=== PATIENT | female | born 1955 | race Caucasian/White ===

== ENCOUNTER 2019-05-07 07:02 | Inpatient (IN) | payer SELFPAY ==
[~2019-05-07] VITALS: Ht 165.1 cm; Wt 48.1 kg
[~2019-05-07 07:02] MED LIST: CELEXA20 MG PO; GABAPENTIN100 MG PO; SEROQUEL100 MG PO; TRAZODONE HCL100 MG
--- OUTSIDE RECORDS SUMMARY | 2019-05-07 07:05 | XMS REPORT ---
Author Author [facility] Address Unknown Phone Unavailable Care Team Providers Care Oil Well Logger Name Role Phone Unavailable Unavailable Problems This patient has no known problems. Allergies, Adverse Reactions, Alerts This patient has no known allergies or adverse reactions. Medications This patient has no known medications. Encounters Start Date/Time End Date/Time Encounter Type Admission Type Attending [facility] Facility Care Department Encounter ID 2019-06-06 00:00:00 2019-06-06 00:00:[address] [facility] [id number] 2019-06-04 00:00:00 2019-06-04 00:00:[address] [facility] [id number] 2019-04-25 10:24:38 2019-04-25 10:24:[address] [facility] [id number] 2019-03-28 10:41:39 2019-03-28 10:41:[address] [facility] [id number] 2019-03-03 00:00:00 2019-03-03 00:00:[address] [facility] [id number] 2019-02-28 10:21:07 2019-02-28 10:21:[address] [facility] [id number] 2019-02-13 00:00:00 2019-02-13 00:00:[address] [facility] [id number] 2019-02-10 00:00:00 2019-02-10 00:00:[address] [facility] [id number] 2019-01-31 09:54:42 2019-01-31 09:54:[address] [facility] [id number] 2019-01-03 10:41:43 2019-01-03 10:41:[address] [facility] [id number] 2019-01-03 00:00:00 2019-01-03 00:00:[address] [facility] [id number] 2019-01-02 08:09:55 2019-01-02 08:09:[address] [facility] [id number] 2018-12-18 08:28:47 2018-12-18 08:28:[address] [facility] [id number] 2018-11-29 09:48:54 2018-11-29 09:48:[address] [facility] [id number] 2018-11-28 10:41:23 2018-11-28 10:41:[address] [facility] [id number] 2018-11-01 09:38:59 2018-11-01 09:38:[address] [facility] [id number] 2018-10-03 00:00:00 2018-10-03 00:00:[address] [facility] [id number] 2018-08-13 00:00:00 2018-08-13 00:00:[address] [facility] [id number] 2018-07-31 00:00:00 2018-07-31 00:00:[address] [facility] [id number] 2018-07-26 10:52:47 2018-07-26 10:52:[address] [facility] [id number] 2018-07-26 08:43:51 2018-07-26 08:43:[address] [facility] [id number] 2018-06-13 13:17:32 2018-06-13 13:17:[address] [facility] [id number]
--- OUTSIDE RECORDS SUMMARY | 2019-05-07 07:05 | XMS REPORT | Clinical Summary ---
Author Author [facility] Organization [facility] Address Unknown Phone Unavailable Care Team Providers Care Divider Operator Name Role Phone PCP Unavailable Allergies Comments Active Allergy Reactions Severity Noted Date Adhesive tape Adhesive Rash Low 12/24/2014 Medications End Date Status Medication Sig Dispensed Refills Start Date Active ASPIRIN 325 MG take 1 tablet 0 TABIndications: (325 mg) by Hypertension oral route once daily Active albuterol-ipratropium Administer 2 1 Inhaler 0 (COMBIVENT) 18-103 Puffs by 3 mcg/actuation inhalation 4 AeroIndications: times daily. Bronchitis due to tobacco use Active cromolyn (NASALCROM) 5.2 Administer 1 26 mL 0 mg/spray (4 %) nasal Valdez in each 3 sprayIndications: Acute nostril 4 upper respiratory times daily. infections of unspecified site Active Colloidal Oatmeal (AVEENO Apply to 1 Package 0 SOOTHING BATH) topical affected 3 packetIndications: area. Contact dermatitis and other eczema, due to unspecified cause Active tacrolimus (PROTOPIC) Apply to 100 g 0 0.03 % affected area 3 ointmentIndications: 2 times Discoid lupus daily. Active triamcinolone (KENALOG) Apply to 80 g 0 0.025 % topical affected area 3 creamIndications: Discoid 2 times lupus daily. Active propranolol (INDERAL) 10 Take 0.5 90 tablet 1 mg tabletIndications: tablets by 3 Bipolar depression mouth 3 times daily. Active fluocinonide (LIDEX) 0.05 Apply to 60 mL 1 % external affected area 4 solutionIndications: DLE 2 times (discoid lupus daily. erythematosus) Active fluocinonide (LIDEX) 0.05 Apply to 60 g 3 % ointmentIndications: affected area 4 DLE (discoid lupus 2 times erythematosus) daily. Active traMADol (ULTRAM) 50 mg Take 2 120 tablet 0 tabletIndications: tablets by 5 Proximal humerus fracture mouth every 6 hours as needed for Pain. Active acetaminophen-codeine Take 1 tablet 120 tablet 0 (TYLENOL/CODEINE #3) by mouth 5 300-30 mg per every 4 hours tabletIndications: as needed for Proximal humerus fracture Pain. Active traMADol (ULTRAM) 50 mg Take 1 tablet 60 tablet 0 tabletIndications: by mouth 5 Humerus fracture every 6 hours as needed for Pain. Active acetaminophen-codeine Take 2 60 tablet 0 (TYLENOL/CODEINE #3) tablets by 5 300-30 mg per mouth every 4 tabletIndications: hours as Humerus fracture needed for Pain. Active gabapentin (NEURONTIN) Take 1 90 capsule 3 300 mg capsule by 7 capsuleIndications: mouth 3 times Medication refill daily. Active mirtazapine (REMERON) 30 Take 1 and 45 tablet 3 mg tabletIndications: 1/2 tablets 8 Generalized anxiety by mouth at disorder bedtime nightly. Active venlafaxine (EFFEXOR XR) Take 3 90 capsule 3 75 mg extended release capsules by 8 capsuleIndications: mouth daily. Generalized anxiety disorder, Severe episode of recurrent major depressive disorder, without psychotic features Active albuterol (VENTOLIN Inhale 2 6.7 g 0 HFA,PROVENTIL HFA,PROAIR Puffs by 8 HFA) 90 mcg/actuation mouth 4 times inhalerIndications: Acute daily as bronchitis, unspecified needed for organism Wheezing or Shortness of Breath. Active eszopiclone (LUNESTA) 3 Take 1 tablet 30 tablet 1 mg tabletIndications: by mouth 8 Generalized anxiety nightly at disorder, Severe episode bedtime as of recurrent major needed depressive disorder, (insomnia). without psychotic features Active clonazePAM (KLONOPIN) 0.5 Take 1 tablet 20 tablet 0 mg tabletIndications: by mouth 8 Generalized anxiety daily as disorder needed for Anxiety. Active mirtazapine (REMERON) 15 Take 1 tablet 30 tablet 2 mg tabletIndications: by mouth at 8 Moderate episode of bedtime recurrent major nightly. depressive disorder, Generalized anxiety disorder, Severe episode of recurrent major depressive disorder, without psychotic features Active venlafaxine (EFFEXOR XR) Take 2 60 capsule 1 75 mg extended release capsules by 8 capsuleIndications: mouth daily. Moderate episode of recurrent major depressive disorder, Generalized anxiety disorder, Severe episode of recurrent major depressive disorder, without psychotic features Active acyclovir (ZOVIRAX) 5 % Apply to 30 g 5 ointmentIndications: affected area 9 Herpes labialis every 3 hours. Active fluocinonide (LIDEX) 0.05 Apply to 60 mL 5 % external affected area 9 solutionIndications: 2 times Discoid lupus daily. Active fluocinonide (LIDEX) 0.05 Apply to 60 g 5 % ointmentIndications: affected area 9 Discoid lupus daily. Active methotrexate (RHEUMATREX) Take 2 8 tablet 0 2.5 mg tabletIndications: tablets by 9 High risk medication use, mouth weekly. DLE (discoid lupus erythematosus) Active folic acid (FOLVITE) 1 mg Take 1 tablet 90 tablet 5 tabletIndications: by mouth 9 Discoid lupus, High risk daily. medication use Active hydroxychloroquine Take 1 tablet 180 tablet 0 (PLAQUENIL) 200 mg by mouth 2 9 tabletIndications: times daily. Long-term use of hydroxychloroquine, Discoid lupus 06/13/2018 Discontinued clonazePAM (KLONOPIN) 0.5 Take 1 tablet 30 tablet 2 mg tabletIndications: by mouth 8 Generalized anxiety daily as disorder needed for Anxiety. 06/13/2018 Discontinued eszopiclone (LUNESTA) 3 Take 1 tablet 30 tablet 2 mg tabletIndications: by mouth 8 Generalized anxiety nightly at disorder, Severe episode bedtime as of recurrent major needed depressive disorder, (insomnia). without psychotic features 11/29/2018 Discontinued fluocinonide (LIDEX) 0.05 Apply to 60 g 2 % ointmentIndications: affected area 8 Discoid lupus daily. 11/29/2018 Discontinued fluocinonide (LIDEX) 0.05 Apply to 60 mL 2 % external affected area 8 solutionIndications: 2 times Discoid lupus daily. 11/29/2018 Discontinued hydroxychloroquine Take 1 tablet 60 tablet 3 (PLAQUENIL) 200 mg by mouth 2 8 tabletIndications: times daily. Long-term use of hydroxychloroquine, Discoid lupus 11/29/2018 Discontinued methotrexate (RHEUMATREX) Take 2 8 tablet 0 2.5 mg tabletIndications: tablets by 9 High risk medication use, mouth weekly. DLE (discoid lupus erythematosus) 01/31/2019 Discontinued hydroxychloroquine Take 1 tablet 180 tablet 0 (PLAQUENIL) 200 mg by mouth 2 9 tabletIndications: times daily. Long-term use of hydroxychloroquine, Discoid lupus 11/29/2018 Discontinued methotrexate (RHEUMATREX) Take 2 8 tablet 0 2.5 mg tabletIndications: tablets by 9 High risk medication use, mouth weekly. DLE (discoid lupus erythematosus) Status Hospital, Clinic, or Ordered Dose Route Frequency Start End Date Other Facility Date Administered Medication Active saline flush 10 mL 10 mL IV PRN 04/25/20 19 9 Ended triamcinolone acetonide 2.5 mg OTHER ONCE 11/01/19 (KENALOG-10) injection 19 9 2.5 mg Ended saline flush 10 mL 10 mL IV ONCE 11/01/19 19 9 Ended saline flush 10 mL 10 mL IV PRN 03/28/20 19 9 Ended triamcinolone acetonide 10 mg OTHER ONCE 03/28/20 (KENALOG-40) injection 10 19 9 mg Ended triamcinolone acetonide 40 mg OTHER ONCE 04/25/20 (KENALOG-40) injection 40 19 9 mg Active Problems Problem Noted Date Fall with injury 03/27/2015 Humerus fracture 11/30/2014 Underweight 03/28/2013 Overview: patient needs access to high protein snacks such as milk, peanut butter, full fat ice cream and milk shakes. If available needs supplementation with Ensure. Discoid lupus 03/28/2013 Overview: discussed with patient the importance of using moisturizing lotion daily and more. As well as applying steriod cream once daily and protopic once daily. Anxiety disorder 02/19/2013 Homeless 02/12/2013 Tobacco abuse counseling 01/29/2013 Bipolar depression 12/30/2012 Hyperlipidemia 03/24/2010 Tobacco abuse 03/24/2010 Hypertension Low back pain Degenerative disc disease Encounters Care Team Description Date Type Specialty Usama Dove MD Discoid lupus (Primary Dx) 04/25/2019 Office Visit Dermatology 04/25/2019 Angus Castillo MD Discoid lupus erythematosus (Primary Dx); High risk medication use 03/28/2019 Office Visit Dermatology 03/28/2019 Angus Castillo MD Discoid lupus (Primary Dx); High risk medication use 02/28/2019 Office Visit Dermatology 02/28/2019 Angus Castillo MD Discoid lupus (Primary Dx); Long-term use of hydroxychloroquine 01/31/2019 Office Visit Dermatology 01/31/2019 Travel Elsie Lua Smoking Cessation Counseling 01/29/2019 Telephone Angus Box MD Discoid lupus (Primary Dx); Neoplasm of uncertain behavior of skin 01/03/2019 Office Visit Dermatology Cortney Santos, OD Long-term use of Plaquenil (Primary Dx); Age-related nuclear cataract, bilateral; Bilateral dry eyes; Refractive error 12/18/2018 Office Visit Ophthalmology 12/18/2018 Angus Castillo MD Discoid lupus (Primary Dx); High risk medication use; Herpes labialis; Long-term use of hydroxychloroquine; DLE (discoid lupus erythematosus) 11/29/2018 Office Visit Dermatology 11/28/2018 Travel Usama Dove MD DLE (discoid lupus erythematosus) (Primary Dx); High risk medication use 11/01/2018 Office Visit Dermatology 11/01/2018 Arron Vasques [facility] 08/01/2018 E-Consult Dermatology Usama Dove MD Discoid lupus erythematosus (Primary Dx) 07/31/2018 Orders Only Dermatology Usama Dove MD Discoid lupus 07/26/2018 Hospital Lab Encounter Usama Dove MD Discoid lupus (Primary Dx); Long-term use of hydroxychloroquine; Positive CONNOR (antinuclear antibody) 07/26/2018 Office Visit Dermatology Dewayne Garcia, Fellow() Moderate episode of recurrent major depressive disorder (Primary Dx); Generalized anxiety disorder; Severe episode of recurrent major depressive disorder, without psychotic features 06/13/2018 Office Visit Psychiatry after 05/06/2018 Immunizations Name Administration Dates Next Due PPV 23 Pneumococcal 01/20/2013 Polysaccaride Tdap Tetanus, diphtheria, 01/20/2013 (Deferred: Too early to give - Taken 5 acellular pertussis years ago per pt. ) Vaccine Family History Medical History Relation Name Comments Arthritis Father Heart Father Hypertension Father Hypertension Father Asthma Mother Diabetes Mother Hypertension Mother Pulmonary Mother COPD Hypothyroid Mother Arthritis Sister Relation Name Status Comments Brother Father Alive Father Father Father (Age 81) Maternal Grandfather Maternal Grandmother Mother Mother Mother Mother Mother Mother (Age 71) Paternal Grandfather Paternal Grandmother Sister Sister Alive Social History Date Tobacco Use Types Packs/Day Years Used Current Every Day Smoker Cigarettes 1 49 Smokeless Tobacco: Never Used Tobacco Cessation: Ready to Quit: No; Counseling Given: Yes Comments: patient declined Drinks/Week oz/Week Comments Alcohol Use never been a problem No Food Insecurity Answer Date Recorded Within the past 12 months, you worried that your Never true 11/29/2018 food would run out before you got money to buy more. Within the past 12 months, the food you bought Never true 11/29/2018 just didn't last and you didn't have money to get more. Sex Assigned at Date Recorded Not on file Industry Job Start Date Occupation Not on file Not on file Not on file Travel End Travel History Travel Start No recent travel history available. Last Filed Vital Signs Reading Time Taken Comments Vital Sign 114/83 06/13/2018 1:17 PM CDT Blood Pressure 91 06/13/2018 1:17 PM CDT Pulse 36.7 C (98 F) 06/13/2018 1:17 PM CDT Temperature 18 06/13/2018 1:17 PM CDT Respiratory Rate - - Oxygen Saturation - - Inhaled Oxygen Concentration 42.5 kg (93 lb 12.8 oz) 04/25/2019 10:26 AM CDT Weight 166.4 cm (5' 5.5") 04/25/2019 10:26 AM CDT Height 15.37 04/25/2019 10:26 AM CDT Body Mass Index Plan of Treatment Care Team Description Date Type Specialty 06/06/2019 Office Visit Dermatology Health Maintenance Due Date Last Done Comments Cervical Cancer Scrn (3 1976 Yrs) Breast Cancer Scrn 1995 (Yearly) IMM Influenza Seasonal 06/10/2019 Oct to November (>/=19 yrs) Colonoscopy 10yr 12/30/2023 12/29/2013 Implants Device Identifier Shelf Expiration Date Model / Serial / Lot Implanted Type Area Manufactur er / [id number] / 5 Hole Plate Left: Arm(s), Mckeon & Implanted: Qty: 1 on 12/24/2014 by [employer] Oswald Steward MD at [facility] c Description: 28 non-locking [id number] non-locking [id number] 22 non-locking [id number] 2.7 Short [id number] non locking [id number] locking [id number] x 2 in and out 32 locking [id number] 36 locking [id number] 34 locking [id number] 36 locki ng [id number] Arthroscopy Supplies Implanted: Qty: 1 on 12/24/2014 at [facility] Procedures Comments Procedure Name Priority Date/Time Associated Diagnosis [facility] SURGICAL PATHOLOGY Routine 01/03/2019 11:30 AM CDT COMPREHENSIVE METABOLIC Routine 01/02/2019 Discoid lupus PANEL 8:00 AM CDT High risk medication use CBC/DIFF Routine 01/02/2019 Discoid lupus 8:00 AM CDT High risk medication use CBC/DIFF Routine 11/28/2018 High risk medication use 10:33 AM CDT COMPREHENSIVE METABOLIC Routine 11/28/2018 High risk medication use PANEL 10:33 AM CDT COMPLEMENT C4 Routine 07/26/2018 Discoid lupus 11:05 AM PRINTING MACHINE OPERATOR COMPLEMENT C3 Routine 07/26/2018 Discoid lupus 11:05 AM PRINTING MACHINE OPERATOR SJOGREN'S AB Routine 07/26/2018 Discoid lupus 11:05 AM PRINTING MACHINE OPERATOR ANTI DSDNA BY CRITHIDIA Routine 07/26/2018 Discoid lupus 11:05 AM PRINTING MACHINE OPERATOR ANTIEXTRACTABLE NUCLEAR Routine 07/26/2018 Discoid lupus ANTIGENS 11:05 AM PRINTING MACHINE OPERATOR COMPREHENSIVE METABOLIC Routine 07/26/2018 Discoid lupus PANEL 11:05 AM PRINTING MACHINE OPERATOR CBC/DIFF Routine 07/26/2018 Discoid lupus 11:05 AM PRINTING MACHINE OPERATOR URINALYSIS Routine 07/26/2018 Discoid lupus 10:54 AM PRINTING MACHINE OPERATOR after 05/06/2018 Results * [facility] SURGICAL PATHOLOGY (01/03/2019 11:30 AM CDT) HX FINAL SKIN, LEFT CHEEK, PUNCH COPATH DIAGNOSIS BIOPSY:CONSISTENT WITH DISCOID LUPUS ERYTHEMATOSUS. Specimen Narrative Performed At [facility] ALISSA ALCOCER Date of 1955 Hospital Number [id number] Location Dermatology Clinic SURGICAL PATHOLOGY Collected:01/03/2019 11:30 Received: 01/06/2019 07:20 PATHOLOGIC DIAGNOSIS SKIN, LEFT CHEEK, PUNCH BIOPSY:CONSISTENT WITH DISCOID LUPUS ERYTHEMATOSUS. Pertinent Clinical Information Patient with long standing DLE, pruritic with lesion remission on left cheek, not responding to ILK; suspicious for SCC. Clinical Impression:SCC vs. DLE vs. other. Specimen:Left cheek. Gross Description This case consists of one part: Part A:Received in formalin labeled with the patient's name and medical record number and "LEFT CHEEK".It consists of a 0.4 x 0.4 cm shaggy, unoriented, andres, circular skin punch which is excised to a depth of 0.3 cm. The epidermis displays a 0.3 x 0.2 cm ill-defined, mar-white, granular macule which abuts the peripheral skin margin.The specimen is bisected to reveal the granular macule abuts the deep resection margin.Also in the container is a 0.3 x 0.3 x 0.1 cm aggregate of andres-white, granular, free floating soft tissue.The specimen is entirely submitted in cassette A1. Rohith Rehman/[id number] Ceramic Designer Microscopic Description There is spinous layer atrophy with many plugged follicles.Few necrotic keratinocytes are present.There is vacuolar alteration of the basal layer of the epidermis, and around the follicles.There is epidermal basement membrane thickening. Electronically Signed Out Art Estrada M.D./[id number] Staff Pathologist Performing Organization Address City/State/Zipcode Phone Number YUAN BOLDEN [place], [place] * COMPREHENSIVE METABOLIC PANEL(DBIL NOT INCLUDED) (01/02/2019 8:00 AM CDT) Only the most recent of 3 results within the time period is included. Albumin 3.9 3.7 - 5.3 g/dL [facility] 1 Calcium 9.0 8.6 - 10.3 mg/dL [facility] 1 CO2 28 21 - 31 mmol/L [facility] 1 Chloride 102 98 - 107 mmol/L [facility] 1 Creatinine 0.60 0.6 - 1.2 mg/dL [facility] 1 Glucose 77 70 - 110 mg/dL [facility] 1 Alkaline 40 34 - 104 U/L [facility] Phosphatase, S 1 Potassium 4.2 3.5 - 5.1 mmol/L [facility] 1 Sodium 139 136 - 145 mmol/L [facility] 1 ALT 3 (L) 7 - 52 U/L [facility] 1 AST (SGOT) 8 (L) 13 - 39 U/L [facility] 1 BUN 9 7 - 25 mg/dL [facility] 1 Bilirubin, 0.2 0.2 - 1.2 mg/dL [facility] Total 1 Protein, Total, 6.9 6.0 - 8.3 g/dL [facility] Serum 1 GFR, Estimated >60 mL/min/1.73 m2 [facility] 1 eGFR If Africn >60 mL/min/1.73 m2 [facility] Am 1 Anion Gap 9 [facility] 1 Specimen Blood Performing Organization Address City/[facility]/Zipcode Phone Number MISYS [facility] 1 * CBC/DIFF (01/02/2019 8:00 AM CDT) Only the most recent of 3 results within the time period is included. WBC 3.9 (L) 4.5 - 11.0 K/uL [facility] 2 RBC 4.08 (L) 4.20 - 5.40 M/uL [facility] 2 Hemoglobin 13.7 12.0 - 16.0 g/dL [facility] 2 Hematocrit 43.6 37.0 - 47.0 % [facility] 2 MCV 107 (H) 82 - 92 fL [facility] 2 MCH 33.6 (H) 27.0 - 32.0 pg [facility] 2 MCHC 31.4 (L) 32.0 - 36.0 g/dL [facility] 2 RDW 56.3 (H) 36.4 - 46.3 fL [facility] 2 Platelets 235 150 - 400 K/uL [facility] 2 Mean Platelet 10.0 9.4 - 12.4 fL [facility] Volume 2 Percent NRBC 0.0 [facility] 2 Absolute NRBC 0.00 [facility] 2 Neutrophils 65.9 34.0 - 70.0 % [facility] 2 Lymphs 19.1 (L) 20.0 - 50.0 % [facility] 2 Monocytes 11.6 5.0 - 12.0 % [facility] 2 Eos 2.1 0.7 - 5.0 % [facility] 2 Basos 0.8 0.1 - 1.2 % [facility] 2 Immature 0.5 0.0 - 0.5 [facility] Granulocytes 2 Neutrophils 2.55 1.56 - 6.13 K/uL [facility] (Absolute) 2 Lymphs 0.74 (L) 1.18 - 3.74 K/uL [facility] (Absolute) 2 Monocytes(Absol 0.45 (H) 0.24 - 0.36 K/uL [facility] [place]) 2 Eos (Absolute) 0.08 0.04 - 0.36 K/uL BT [facility] 2 Baso (Absolute) 0.03 0.01 - 0.08 K/uL [facility] 2 Immature Grans 0.02 0.00 - 0.03 K/uL [facility] (Abs) 2 Specimen Blood Performing Organization Address City/State/Zipcode Phone Number [facility] * ANTIEXTRACTABLE NUCLEAR ANTIGEN (07/26/2018 11:05 AM PRINTING MACHINE OPERATOR) MILL OPERATOR HEAD Antibodies <0.2 LABORATORY Reference range: 0.0 to 0.9 [facility] Unit: CHRIS Mckeon <0.2 LABORATORY Antibodies Reference range: 0.0 to 0.9 [facility] Unit: CHRIS Specimen Blood Products (Lab Use Only) - BLOOD Performing Organization Address [facility] Phone Number [facility] [address] [place] [address] CHRIS 145 * SJOGREN'S AB (07/26/2018 11:05 AM PRINTING MACHINE OPERATOR) Anti SS/A 0.6 LABORATORY Reference range: 0.0 to 0.9 [facility] Unit: [facility] Anti SS/B <0.2 LABORATORY Reference range: 0.0 to 0.9 [facility] Unit: [facility] Specimen Blood Products (Lab Use Only) - BLOOD Performing Organization Address [facility] Phone Number [facility] [address] [place] [address] CHRIS 145 * ANTI DSDNA BY CRITHIDIA (07/26/2018 11:05 AM PRINTING MACHINE OPERATOR) Pathologist [facility] Anti dsDNA Negative NEG Titer BT DIAGNOSTIC IMMUNOLOGY Specimen Blood Performing Organization Address [facility] Phone Number [facility] BT DIAGNOSTIC IMMUNOLOGY * COMPLEMENT C4 (07/26/2018 11:05 AM PRINTING MACHINE OPERATOR) Complement C4 30.2 19 - 52 mg/dL BT [facility] 1 Specimen Blood Performing Organization Address [facility] Phone Number [facility] 1 * COMPLEMENT C3 (07/26/2018 11:05 AM PRINTING MACHINE OPERATOR) Complement C3 129.6 87 - 200 mg/dL BT [facility] 1 Specimen Blood Performing Organization Address [facility] Phone Number [facility] 1 * UA CHEMISTRIES (07/26/2018 10:54 AM PRINTING MACHINE OPERATOR) Color Straw [facility] Clarity Clear [facility] 4 Specific 1.008 1.001 - 1.035 [facility] [place] [facility] 4 pH 7.0 5 - 8 [facility] 4 Protein Negative NEG [facility] 4 Glucose Negative NEG [facility] 4 Ketones Negative NEG [facility] 4 Bilirubin Negative NEG [facility] 4 Nitrate Negative NEG [facility] 4 Urobilinogen,Se <1.0 0.2 - 1.0 EU/dL [facility] mi-Qn [facility] 4 Leukocyte Negative NEG [facility] 4 Occult Blood Negative NEG [facility] 4 Specimen Urine Performing Organization Address City/State/Zipcode Phone Number JOI [facility] 4 after 05/06/2018 Insurance Type Payer Benefit Subscriber ID Effective Phone Address Plan / Dates Group [employer]AN FINANCIAL xxxxxx 2019-3 [address] [place] [address] [facility] xxxxxx [phone]- [phone] [address] [facility] [place], [place] [id number] [facility] PLAN FINANCIAL xxxxxxxx 2019-3 [address] / [place] [address]
--- NOTE | 2019-05-07 08:04 | Diagnostic Imaging Report ---
TECHNIQUE: Computed tomography imaging of the PELVIS was performed WITHOUT injected contrast using standard departmental protocols. Dose modulation, iterative reconstruction, and/or weight based adjustment of the mA/kV was utilized to reduce the radiation dose to as low as reasonably achievable. HISTORY: Pain, fall COMPARISON: None. FINDINGS: Comment fracture of the right proximal femur involving the intratrochanteric region: * Mildly displaced fracture across the greater trochanter * Mildly displaced fracture of the lesser trochanter * Displaced fracture across the subtrochanteric region with displacement and angulation. No additional fracture visualized. Soft tissue swelling and edema adjacent to fracture site. IMPRESSION: Comminuted intertrochanteric fracture of the right femur. Signed by: Dr. Brian Harrell M.D. on 05/07/2019 8:01 AM
[2019-05-07] MEDS ORDERED: SODIUM CHLORIDE 0.9% 1000ML 1,000 ML IV SCH (08:10)
[2019-05-07] MEDS ORDERED: MORPHINE SULFATE INJ 4 MG/ML INJ 1ML IV PRN (08:15)
[2019-05-07] MEDS ORDERED: ONDANSETRON HCL INJ 2MG/ML 2ML 2 MG/ML VIAL IV PRN ×2 (08:15→13:30)
[2019-05-07] MEDS ORDERED: MORPHINE SULFATE INJ 4 MG/ML INJ 1ML ONE (08:16)
--- OUTSIDE RECORDS SUMMARY | 2019-05-07 08:23 | XMS REPORT | Clinical Summary ---
Author Author [facility] Organization [facility] Address Unknown Phone Unavailable Care Team Providers Care Estate Attorney Name Role Phone PCP Unavailable Allergies Comments [...] 26 mL 0 mg/spray (4 %) nasal [place] in each 3 sprayIndications: Acute nostril 4 [...] 11/01/2018 Office Visit Dermatology 11/01/2018 Arron Vasques [facility] 08/01/2018 E-Consult Dermatology Usama Dove MD Discoid [...] Lot Implanted Type Area Manufactur er / [id number] / 5 Hole Plate Left: Arm(s), Mckeon & Implanted: Qty: 1 on 12/24/2014 by [employer] Oswald Steward MD at [facility] c Description: 28 non-locking [id number] 22 non-locking [id number] 22 non-locking [id number] 2.7 Short [id number] 28 non locking [id number] 34 [id number] 24 locking [id number] x 2 in and out 32 locking [id number] 36 locking [id number] 34 locking [id number] 36 locki ng [id number] Arthroscopy Supplies Implanted: Qty: 1 on 12/24/2014 at [facility] Procedures Comments Procedure Name Priority Date/Time Associated Diagnosis [facility] SURGICAL PATHOLOGY Routine 01/03/2019 11:30 AM [...] C4 Routine 07/26/2018 Discoid lupus 11:05 AM NAVIGATION OFFICER COMPLEMENT C3 Routine 07/26/2018 Discoid lupus 11:05 AM NAVIGATION OFFICER SJOGREN'S AB Routine 07/26/2018 Discoid lupus 11:05 AM NAVIGATION OFFICER ANTI DSDNA BY CRITHIDIA Routine 07/26/2018 Discoid lupus 11:05 AM NAVIGATION OFFICER ANTIEXTRACTABLE NUCLEAR Routine 07/26/2018 Discoid lupus ANTIGENS 11:05 AM NAVIGATION OFFICER COMPREHENSIVE METABOLIC Routine 07/26/2018 Discoid lupus PANEL 11:05 AM NAVIGATION OFFICER CBC/DIFF Routine 07/26/2018 Discoid lupus 11:05 AM NAVIGATION OFFICER URINALYSIS Routine 07/26/2018 Discoid lupus 10:54 AM NAVIGATION OFFICER after 05/06/2018 Results * [facility]GICAL PATHOLOGY (01/03/2019 11:30 AM CDT) HX FINAL SKIN, LEFT CHEEK, PUNCH COPATH DIAGNOSIS BIOPSY:CONSISTENT WITH DISCOID LUPUS ERYTHEMATOSUS. Specimen Narrative Performed At [facility] ALISSA ALCOCER Date of 1955 Hospital Number [id number] Location Dermatology Clinic SURGICAL PATHOLOGY Collected:01/03/2019 11:30 [...] is entirely submitted in cassette A1. Rohith Rehman/[id number] Day Care Home Provider Microscopic Description There is spinous layer atrophy with many plugged follicles.Few necrotic keratinocytes are present.There is vacuolar alteration of the basal layer of the epidermis, and around the follicles.There is epidermal basement membrane thickening. Electronically Signed Out Art Estrada M.D./[id number] Staff Pathologist Performing Organization Address City/State/Zipcode Phone Number YUAN BOLDEN [place], [place] * COMPREHENSIVE METABOLIC PANEL(DBIL NOT INCLUDED) (01/02/2019 [...] MAIN-STATION 1 Specimen Blood Performing Organization Address City/[facility]/Zipcode Phone Number MIS[place] BT MAIN-STATION 1 * [...] (H) 0.24 - 0.36 K/uL BT MAIN-STATION [place]) 2 Eos (Absolute) 0.08 0.04 - 0.36 K/uL BT MAIN-STATION 2 Baso (Absolute) 0.03 0.01 - 0.08 K/uL BT MAIN-STATION 2 Immature Grans 0.02 0.00 - 0.03 K/uL BT MAIN-STATION (Abs) 2 Specimen Blood Performing Organization Address City/State/Zipcode Phone Number [place] BT MAIN-STATION 2 * ANTIEXTRACTABLE NUCLEAR ANTIGEN (07/26/2018 11:05 AM NAVIGATION OFFICER) NURSE INSTRUCTOR Antibodies <0.2 LABORATORY Reference range: 0.0 to 0.9 [facility] Unit: CHRIS Mckeon <0.2 LABORATORY Antibodies Reference range: 0.0 to 0.9 [facility] Unit: CHRIS Specimen Blood Products (Lab Use Only) - BLOOD Performing Organization Address [facility] Phone Number [employer] [address] [place] [address] CHRIS 145 * SJOGREN'S AB (07/26/2018 11:05 AM NAVIGATION OFFICER) Anti SS/A 0.6 LABORATORY Reference range: 0.0 to 0.9 [facility] Unit: [facility] Anti SS/B <0.2 LABORATORY Reference range: 0.0 to 0.9 [facility] OF Unit: [facility] Specimen Blood Products (Lab Use Only) - BLOOD Performing Organization Address [facility] Phone Number [facility] [address] [place] [address] CHRIS 145 * ANTI DSDNA BY CRITHIDIA (07/26/2018 11:05 AM NAVIGATION OFFICER) Pathologist [facility] Anti dsDNA Negative NEG Titer BT DIAGNOSTIC IMMUNOLOGY Specimen Blood Performing Organization Address [facility] Phone Number [facility] BT DIAGNOSTIC IMMUNOLOGY * COMPLEMENT C4 (07/26/2018 11:05 AM NAVIGATION OFFICER) Complement C4 30.2 19 - 52 mg/dL BT MAIN-STATION 1 Specimen Blood Performing Organization Address [facility] Phone Number MISYS BT MAIN-STATION 1 * COMPLEMENT C3 (07/26/2018 11:05 AM NAVIGATION OFFICER) Complement C3 129.6 87 - 200 mg/dL BT MAIN-STATION 1 Specimen Blood Performing Organization Address [facility] Phone Number [facility]ISYS BT MAIN-STATION 1 * UA CHEMISTRIES (07/26/2018 10:54 AM NAVIGATION OFFICER) Color Straw [facility] MAIN-STATION 4 Clarity Clear [facility] MAIN-STATION 4 Specific 1.008 1.001 - 1.035 [facility] [place] MAIN-STATION 4 pH 7.0 5 - 8 [...] FINANCIAL xxxxxx 2019-3 [address] [place] [address] [facility] xxxxxx 2018- [phone] [address] [facility] [address] [facility] PLANNING [place], [place] INDIGENT [address] [facility] PLAN FINANCIAL xxxxxxxx 2019-3 [address] / [place] [address]
[2019-05-07 08:29] LABS: BASOPHILS # (AUTO) 0.1 (0.0-0.1); BASOPHILS % 0.8 % (0.0-1.0); EOSINOPHILS # (AUTO) 0.1 (0.0-0.4); EOSINOPHILS % 1.1 % (0.0-6.0); HEMATOCRIT 40.9 % (34.2-44.1); HEMOGLOBIN 13.8 g/dL (12.0-16.0); LYMPHOCYTES # (AUTO) 0.7 (1.0-3.2); LYMPHOCYTES % 10.5 % (18.0-39.1); MEAN CORPUSCULAR HEMOGLOBIN 33.6 pg (28-32); MEAN CORPUSCULAR HGB CONC 33.7 g/dL (31-35); MEAN CORPUSCULAR VOLUME 99.5 fL (81-99); MONOCYTES # (AUTO) 0.5 (0.2-0.8); MONOCYTES % 7.3 % (4.4-11.3); NEUTROPHILS # (AUTO) 4.9 (2.1-6.9); NEUTROPHILS % 80.1 % (38.7-80.0); PLATELET COUNT 188 x10e3/uL (140-360); RED BLOOD COUNT 4.11 x10e6/uL (3.6-5.1); RED CELL DISTRIBUTION WIDTH 13.4 % (11.7-14.4)
[2019-05-07 09:08] LABS: ALANINE AMINOTRANSFERASE 9 IU/L (0-55); ALBUMIN 3.9 g/dL (3.5-5.0); ALBUMIN/GLOBULIN RATIO 1.1 (0.8-2.0); ALKALINE PHOSPHATASE 42 IU/L (40-150); ANION GAP 13.5 mmol/L (8-16); BLOOD UREA NITROGEN 8 mg/dL (7-26); BUN/CREATININE RATIO 11 (6-25); CALCIUM 9.2 mg/dL (8.4-10.2); CARBON DIOXIDE 24 mmol/L (22-29); CHLORIDE 100 mmol/L (98-107); CREATININE, SERUM 0.75 mg/dL (0.57-1.11); EST GLOMERULAR FILTRATION RATE > 60 ML/MIN (60-); GLUCOSE 111 mg/dL (74-118); POTASSIUM 3.5 mmol/L (3.5-5.1); SODIUM 134 mmol/L (136-145)
--- NOTE | 2019-05-07 09:09 | NUR ---
seen by dr araujo
--- NOTE | 2019-05-07 09:51 | NUR ---
consent done on chart, iv meds done, type and screen done and in lab. collected per policy. yellow socks and fall band and latex allg band. type and screen band and id band all on
--- NOTE | 2019-05-07 11:04 | NUR ---
CALLED OR TO SEE IF NIKOLAY AVAILABLE TO VERBAL PAIN ORDER. NOT IN OR. WAITING FOR CALL BACK FROM DR GOMEZ.
[2019-05-07] MEDS ORDERED: CEFAZOLIN SOD 1 GM/NS 50ML 100 ML IV ONE (12:00)
--- NOTE | 2019-05-07 12:04 | Consultation ---
DATE OF CONSULTATION: 05/07/2019 CHIEF COMPLAINT: Right hip pain. HISTORY OF PRESENT ILLNESS: The patient is a 63-year-old female, who fell this morning. She noted immediate onset of right hip pain. She was brought into the emergency room for further evaluation. She denies any other complaints besides right hip pain. PAST MEDICAL HISTORY: Lupus. PREVIOUS SURGERIES: Include dermatologic surgeries, appendectomy, hysterectomy, cholecystectomy, and wrist fracture. MEDICATIONS: Plaquenil. ALLERGIES: NONE. SOCIAL HISTORY: She is retired. She previously worked as a pediatric intensive care nurse. She smokes a pack of cigarettes a day. She does not drink alcohol. She lives alone. She previously was independently ambulator. She has a sister who lives in the area. PHYSICAL EXAMINATION: She is awake and alert and oriented. She appears older than her chronologic age. She is thin and frail and has a bit of a smoker's cough. Her right lower extremity is shortened and externally rotated. There is tenderness with any attempted passive range of motion. There are no puncture wounds or abrasions. Distal neurovascular exam is normal. LABORATORY STUDIES: X-ray show a comminuted intertrochanteric fracture of the right hip. IMPRESSION: Right hip intertrochanteric fracture. The findings and options were discussed with the patient. She previously was an ambulator. Definitive treatment would require surgical stabilization. I have recommended an intramedullary hip screw. The details of the surgery including the incisions, the implants and the recovery were explained. She states she understands. She would like to proceed as soon as possible. Thank you for the consultation. Jerrell Moore MD DR/ZEESHAN /[id number]
--- NOTE | 2019-05-07 12:10 | NUR ---
OR TECH HERE TO GET PT. CHART AND PT TO OR
[2019-05-07] MEDS: SODIUM CHLORIDE 0.9% 1000ML 1,000 ML IV SCH (13:20)
[2019-05-07] MEDS ORDERED: PROMETHAZINE HCL (IM) 25 MG/ML VIAL INJ PRN (13:30)
[2019-05-07] MEDS ORDERED: DIPHENHYDRAMINE HCL INJ 50 MG/ML VIAL IM/IV PRN (13:30)
[2019-05-07] MEDS ORDERED: HYDROCODONE/APAP 5MG-325MG TAB PO PRN (13:30)
[2019-05-07] MEDS ORDERED: ZOLPIDEM TARTRATE 5 MG TAB PO PRN (13:30)
[2019-05-07] MEDS ORDERED: ACETAMINOPHEN 650 MG SUPP PR PRN (13:30)
[2019-05-07] MEDS ORDERED: DOCUSATE SODIUM 100 MG CAP PO PRN (13:30)
[2019-05-07] MEDS ORDERED: KETOROLAC TROMETHAMINE 30 MG/ML VIAL IV PRN (13:30)
[2019-05-07] MEDS ORDERED: FENTANYL CITRATE/PF 100MCG/2 ML INJ ONE (13:52)
[2019-05-07] MEDS ORDERED: ACETAMINOPHEN 1000 MG/100 ML 100 ML IV ONE (13:52)
--- NOTE | 2019-05-07 16:11 | Operative Report ---
DATE OF PROCEDURE: 05/07/2019 SURGEON: Jerrell Moore MD ASSISTANT COACH: Gee Scott, Certified PA. PREOPERATIVE DIAGNOSIS: Right subtrochanteric femur fracture. POSTOPERATIVE DIAGNOSIS: Right subtrochanteric femur fracture. PROCEDURE: Closed reduction and intramedullary nail placement, right femur. INDICATIONS: The patient is a 63-year-old female, who is physiologically older than her chronologic age. She fell from a standing height and has sustained a right femur fracture. The findings and options have been discussed. We have recommended surgical stabilization. The risks and benefits of the procedure were explained in detail. All of her questions were answered. She stated she understood and wished to proceed. PROCEDURE IN DETAIL: The patient was brought to the operating room and placed under general anesthetic. She received prophylactic antibiotics. She was positioned on the fracture table in gentle traction. A preoperative time-out was performed. The right hip was prepped and draped in a sterile manner. A C-arm image intensifier was used to confirm satisfactory reduction. A small incision was made proximal to the tip of the right greater trochanter. A curved awl was used to establish entry into the femoral canal. A guide pin was placed down the medullary canal. This was checked in the AP and lateral plane. This was over-reamed with a 12 mm reamer. There was minimal endosteal clatter. A [employer] intramedullary hip screw was placed. This was 11 mm x 360 mm. This was locked proximally with a 95 mm lag screw. Because of the patient's thin body habitus, we made sure to bury the screw as close as possible to the lateral cortex. A distal 40 mm locking screw was placed. Intraoperative x-rays confirmed satisfactory reduction and positioning of the hardware. The wounds were irrigated and closed. Blood loss was less than 50 mL. All needle and sponge counts were correct. Jerrell Moore MD DR/ZEESHAN /[id number]
[2019-05-07] MEDS ORDERED: SEVOFLURANE INHAL SOLN 250 ML PEN BTL ONE (16:36)
[2019-05-07] MEDS ORDERED: PROPOFOL IV EMULSION 10 MG/ML 20 ML VIAL ONE (16:36)
[2019-05-07] MEDS ORDERED: LIDOCAINE HCL 2% LOCAL INJ 5 ML SDV VIAL INJ ONE (16:36)
[2019-05-07] MEDS ORDERED: ONDANSETRON HCL INJ 2MG/ML 2ML 2 MG/ML VIAL ONE (16:36)
[2019-05-07] MEDS ORDERED: PHENYLEPHRINE HCL 1% 10 MG/ML VIAL ONE (16:36)
--- NOTE | 2019-05-07 17:22 | NUR ---
Received patient from OR via stretcher. Alert and oriented time 4. respiration even and unlabored without SOB. Orientated patient to the room and call light. Call light within reach.
[2019-05-07 17:35] VITALS: BP 108/86
[2019-05-07 17:46] VITALS: BP 132/73
[2019-05-07 17:54] VITALS: BP 132/73
[2019-05-07] MEDS ORDERED: MIDAZOLAM HCL 2 MG/2 ML VIAL ONE (17:55)
[2019-05-07] MEDS: ACETAMINOPHEN 1000 MG/100 ML IV SCH (18:32)
[2019-05-07] MEDS: ASPIRIN 325 MG TAB PO SCH (18:32)
[2019-05-07] MEDS: CELECOXIB 200 MG CAP PO SCH (18:32)
[2019-05-07] MEDS: CEFAZOLIN SOD 1 GM/NS 50ML 50 ML IV SCH (19:40)
[2019-05-07 19:54] VITALS: BP 120/69
[2019-05-07 20:36] VITALS: BP 120/69
[2019-05-07] MEDS: HYDROCODONE/APAP 7.5MG-325MG 1 EA TAB PO PRN (23:02)
[2019-05-08] MEDS: ACETAMINOPHEN 1000 MG/100 ML IV SCH ×2 (00:05→05:31)
[2019-05-08 00:18] VITALS: BP 130/75
[2019-05-08 03:48] VITALS: BP 127/72
[2019-05-08] MEDS: SODIUM CHLORIDE 0.9% 1000ML 1,000 ML IV SCH ×2 (03:54→09:20)
[2019-05-08] MEDS: CEFAZOLIN SOD 1 GM/NS 50ML 50 ML IV SCH (03:54)
[2019-05-08 05:41] LABS: HEMATOCRIT 29.4 % (34.2-44.1); HEMOGLOBIN 9.6 g/dL (12.0-16.0)
--- NOTE | 2019-05-08 05:43 | NUR ---
IV site infiltrated. Patient refused new IV site.
[2019-05-08] MEDS ORDERED: ONDANSETRON HCL 4 MG ORAL DISINTEGRATING TAB PO PRN (06:15)
--- NOTE | 2019-05-08 07:00 | NUR ---
BEDSIDE SHIFT REPORT RECEIVED FROM NIGHT RN. PT DENIES NEEDS AT THIS TIME.
[2019-05-08 08:00] VITALS: BP 127/72
[2019-05-08 08:12] VITALS: BP 149/84
--- NOTE | 2019-05-08 08:56 | NUR ---
MARKO LOPEZ OBTAINED SIGNATURES WILL FILE IN PACU
--- NOTE | 2019-05-08 08:57 | NUR ---
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
--- NOTE | 2019-05-08 09:30 | NUR ---
DR. LINK AT BEDSIDE. PT CLEARED TO DISCHARGE HOME.
[2019-05-08] MEDS: ASPIRIN 325 MG TAB PO SCH (09:45)
[2019-05-08] MEDS: CELECOXIB 200 MG CAP PO SCH (09:45)
[2019-05-08] MEDS: HYDROCODONE/APAP 7.5MG-325MG 1 EA TAB PO PRN (10:58)
[2019-05-08] MEDS ORDERED: ULTRAM 50MG50 MG PO (11:07)
[2019-05-08] MEDS ORDERED: TYLENOL WITH C1 EACH PO (11:07)
--- NOTE | 2019-05-08 11:30 | NUR ---
PT WHEELED TO LOBBY BY YARD SUPERVISOR AND ASSISTED INTO TRANSPORTATION. PT DENIED FURTHER NEEDS.
[2019-05-08] MEDS ORDERED: ACETAMINOPHEN 1000 MG/100 ML IV PRN (13:30)
== END 2019-05-08 11:35 | disposition home or self-care (01) | DRG 482 ==
LOC: ER 07:02 → ERHOLD 08:20 → MED/SURG 17:22
PROC: 0QS636Z Reposition Right Upper Femur with Intramedullary Internal Fixation Device, Percutaneous Approach (ICD-10-PCS; principal; 2019-05-07 07:00)
DX: S72.141A Displaced intertrochanteric fracture of right femur, initial encounter for closed fracture (principal); J44.9 Chronic obstructive pulmonary disease, unspecified; L93.0 Discoid lupus erythematosus; Z72.0 Tobacco use; W01.0XXA Fall on same level from slipping, tripping and stumbling without subsequent striking against object, initial encounter; Z88.8 Allergy status to other drugs, medicaments and biological substances; Z91.040 Latex allergy status
CPT/HCPCS: 36415; 72192; 76000; 80053; 85014; 85018; 85025; 86850; 86900; 93005; 99285; C1713; J0690; J2001; J2250; J2270; J2370; J2405; J3010; J7030